=== PATIENT | male | born 1985 | race Asian ===

== ENCOUNTER → 2018-09-21 | Outpatient (CLI) | payer OTHER ==
[~2018-09-21] VITALS: Ht 172.7 cm; Wt 83.5 kg
[~2018-09-21] MED LIST: AMLO10TA6 PO; ASCO-72 PO; MULT-246 PO; NAPR500T8 PO
[2018-09-21 11:22] VITALS: BP 133/84
--- NOTE | 2018-09-21 14:34 | CARD ---
MR#: [id number] Date of Study: 09/21/2018 Ordering Physician: NIRAJ CESAR, Referring Physician: NIRAJ CESAR Tech: Cheryl Graff RN APPROVED REPORT EXAM Tilt Table Attending Nurse: Cheryl Graff RN HISTORY The Patient is a 33 year-old male with a history of syncope INDICATIONS Recurrent syncope PROCEDURE After explaining the risks, benefits, and alternative options, informed consent was obtained from the patient. Base - lineRhythm: SinusHR: 102 bpmBP: 141/21baUbY7 Sat: 97 % [id number]: SinusHR: 68 bpmBP: 135/40elBoZ2 Sat: 97 % Kzgv9879Dlzccm: SinusHR: 73 bpmBP: 139/49tiYlZ4 Sat: 96 % Jhqw9201Hwetpu: SinusHR: 76 bpmBP: 124/61klXpO6 Sat: 96 % Iana4095Wndkwa: SinusHR: 84 bpmBP: 141/60hlVvO8 Sat: 98 % 80' Gnlj8869Ewtvsv: SinusHR: 84 bpmBP: 133/66xxPcP0 Sat: 96 % 80' Zuyp6135Ddxcmc: SinusHR: 94 bpmBP: 118/31hsUmI8 Sat: 99 % 80' Rzsu2658Dlsgrg: SinusHR: 95 bpmBP: 143/24rrBdZ1 Sat: 99 % 80' Xess1989Rzlwoz: SinusHR: 99 bpmBP: 121/31wxTyN8 Sat: 98 % 80' Eezj4169Ohohxz: SinusHR: 94 bpmBP: 137/35umVnT0 Sat: 98 % 80' Lgym2373Fqisgc: SinusHR: 93 bpmBP: 116/05usKwL0 Sat: 97 % 80' Shqr1078Vxxsvu: Sinus TachycardiaHR: 106 bpmBP: 110/65oeInM6 Sat: 97 % 80' Ioie3364Szmucw: SinusHR: 94 bpmBP: 118/89qxGjX1 Sat: 95 % 80' Qrsw3018Sqonzs: SinusHR: 98 bpmBP: 131/57vuMpA7 Sat: 99 % 80' Vycg3127Loazat: SinusHR: 95 bpmBP: 111/03aeErN9 Sat: 99 % 80' Jewi4195Hmpzqs: JunctionalHR: 45 bpmBP: 59/98neDnO1 Sat: 100 % Gzab0216Algdxm: SinusHR: 60 bpmBP: 115/10gbRbN2 Sat: 97 % Jler8238Kgrrvu: SinusHR: 70 bpmBP: 121/07piYmG2 Sat: 99 % Pefo7322Ybgsdi: SinusHR: 71 bpmBP: 139/11djCrK5 Sat: 99 % COMPLICATIONS pt nauseated and dizzy. Heart Rate dropped to 45. 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
== END | disposition home or self-care (01) ==
LOC: EKG 10:49
PROVIDERS: ATTEND Internal Medicine Cardiovascular Disease
DX: R55 Syncope and collapse (principal)
CPT/HCPCS: 93660